=== PATIENT | female | born 1985 | race Caucasian/White ===

== ENCOUNTER 2017-02-19 19:48 | Emergency (ER) | payer MEDICAID ==
[~2017-02-19] VITALS: Ht 162.6 cm; Wt 123.1 kg
[2017-02-19] MEDS ORDERED: PREN-3 PO (20:00)
[2017-02-19 20:31] LABS: BLOOD UREA NITROGEN 8 mg/dL (7-18)
[2017-02-19 21:23] LABS: PATH.CAST-FLAG NOT PRESENT; SPERM-FLAG NOT PRESENT; SRC-FLAG NOT PRESENT; XTAL-FLAG NOT PRESENT; YLC-FLAG NOT PRESENT
[2017-02-19 22:07] VITALS: BP 133/82
== END 2017-02-19 22:09 | disposition home or self-care (01) ==
LOC: ED 22:03
DX: O20.0 Threatened abortion (principal); O99.331 Smoking (tobacco) complicating pregnancy, first trimester; Z3A.01 Less than 8 weeks gestation of pregnancy
CPT/HCPCS: 36415; 76805; 80048; 81001; 82040; 84702; 85025; 86901; 99285

== ENCOUNTER 2017-09-30 20:54 | Emergency (ER) | payer MEDICAID ==
[~2017-09-30] VITALS: Ht 165.1 cm; Wt 142.6 kg
[~2017-09-30 20:54] MED LIST: PREN-3 PO
[2017-09-30 20:57] VITALS: BP 163/103
[2017-09-30] MEDS ORDERED: DEXAMETHASONE 4 MG TABLET PO ONE (21:48)
[2017-09-30] MEDS ORDERED: DEXAMETHASONE 4 MG TABLET ONE (21:50)
== END 2017-09-30 22:05 | disposition home or self-care (01) ==
LOC: ED 22:00
DX: J02.8 Acute pharyngitis due to other specified organisms (principal); J00 Acute nasopharyngitis [common cold]; B97.89 Other viral agents as the cause of diseases classified elsewhere; F17.210 Nicotine dependence, cigarettes, uncomplicated; E66.9 Obesity, unspecified
CPT/HCPCS: 99283

== ENCOUNTER 2019-05-16 13:06 | Emergency (ER) | payer MEDICAID ==
[~2019-05-16] VITALS: Ht 162.6 cm; Wt 139.0 kg
[2019-05-16 13:08] VITALS: BP 179/72
--- NOTE | 2019-05-16 13:29 | NUR ---
THIS IS A 34 YO FEMALE COMING IN FOR FRONTAL TOOTH PAIN 12/28, RADIATING TO RIGHT JAW. THERE IS DISCHARGE COMING FROM LOOSE FRONT TOOTH, PAIN AND TOOTH ISSUES HAVE BEEN GOING ON FOR PAST THREE DAYS.
== END 2019-05-16 13:59 | disposition home or self-care (01) ==
LOC: ED 13:57
DX: K02.9 Dental caries, unspecified (principal); K08.89 Other specified disorders of teeth and supporting structures; F17.210 Nicotine dependence, cigarettes, uncomplicated; E66.9 Obesity, unspecified
CPT/HCPCS: 99283

== ENCOUNTER 2020-12-27 09:41 | Inpatient (IN) | payer MEDICAID ==
[~2020-12-27] VITALS: Ht 162.6 cm; Wt 138.0 kg
[2020-12-27] MEDS ORDERED: MAALOX/HYOSCYAMINE/LIDOCAINE 45 ML BTL ONE (10:07)
[2020-12-27] MEDS ORDERED: ONDANSETRON 2MG/ML, 2ML ONE ×3 (10:07→18:45)
[2020-12-27] MEDS ORDERED: FAMOTIDINE 20 MG/2 ML ONE (10:08)
--- NOTE | 2020-12-27 10:15 | NUR ---
ruq pain worse with eating x 2 weeks no abd surgical hx placed on nibp/pox piv placed from which labs were drawn, then medicated per emar Cxr at bedside at 09:59a ultrsound at bedside at 10:14a
[2020-12-27 10:16] LABS: BASOPHILS % (AUTO) 0 % (0-1); EOSINOPHILS % (AUTO) 1 % (1-7); LYMPHOCYTES % (AUTO) 9 % (22-44); MEAN CORPUSCULAR HEMOGLOBIN 31.5 pg (27.0-34.8); MEAN CORPUSCULAR HGB CONC 35.2 g/dL (32.4-35.8); MEAN PLATELET VOLUME 8.7 fL (7.4-10.4); MONOCYTES % (AUTO) 4 % (2-9); NEUTROPHILS % (AUTO) 86 % (42-75); PLATELET COUNT 260 x10^3/uL (130-400); RED BLOOD COUNT 5.48 x10^6/uL (3.82-5.3); RED CELL DISTRIBUTION WIDTH 14.1 % (9.6-15.2)
[2020-12-27 10:29] LABS: ALBUMIN 3.7 g/dL (3.4-5.0); ANION GAP 10 mmol/L (5-15); CALCIUM 8.6 mg/dL (8.5-10.1); CHLORIDE 106 mmol/L (98-107)
[2020-12-27] MEDS ORDERED: FAMOTIDINE 20 MG/2 ML IVPush ONE (10:30)
[2020-12-27] MEDS ORDERED: ONDANSETRON 2MG/ML, 2ML IVPush ONE (10:30)
[2020-12-27] MEDS ORDERED: MAALOX/HYOSCYAMINE/LIDOCAINE 45 ML BTL PO ONE (10:30)
--- NOTE | 2020-12-27 10:33 | NUR ---
with reassessment nausea improved to 07/30, pain remains at 8-erp made aware
[2020-12-27 10:35] LABS: ALANINE AMINOTRANSFERASE 95 U/L (12-78); ALKALINE PHOSPHATASE 104 U/L (45-117); BILIRUBIN,TOTAL 0.8 mg/dL (0.2-1.0); CREATININE 0.82 mg/dL (0.55-1.02); TOTAL PROTEIN 7.8 g/dL (6.4-8.2)
[2020-12-27] MEDS ORDERED: MORPHINE SULFATE 4 MG/ML, 1ML ONE ×2 (10:53→11:17)
[2020-12-27] MEDS ORDERED: MORPHINE SULFATE 4 MG/ML, 1ML IVPush ONE (11:00)
--- NOTE | 2020-12-27 11:59 | NUR ---
REMEDICATED FOR UNCONTROLLED RUQ PAIN/IVF STARTED WELL
[2020-12-27] MEDS ORDERED: SODIUM CHLORIDE 0.9% 1,000ML IVBOLUS ONE (12:00)
[2020-12-27] MEDS ORDERED: MORPHINE SULFATE 4 MG/ML, 1ML IVPush PRN ×2 (12:00→13:30)
[2020-12-27] MEDS ORDERED: CEFOTETAN PMX 2GM/50ML 50 ML IVPB ONE (13:00)
--- NOTE | 2020-12-27 13:20 | NUR ---
attempted to call report x1. no answer
[2020-12-27 14:00] VITALS: BP 129/65
[2020-12-27 14:52] VITALS: BP 129/65
[2020-12-27] MEDS ORDERED: INDOCYANINE GREEN 25 MG VIAL IV STA (15:19)
[2020-12-27 15:53] LABS: HCG UR SG 1.038 (1.003-1.030)
[2020-12-27] MEDS ORDERED: BUPIVACAINE/PF 0.5% ONE (16:03)
[2020-12-27] MEDS ORDERED: EPINEPHRINE 1 MG/ML, 1ML ONE (16:03)
[2020-12-27] MEDS ORDERED: MIDAZOLAM 1 MG/ML, 2ML ONE (17:51)
[2020-12-27] MEDS ORDERED: FENTANYL PF 250 MCG/5ML ONE (17:51)
[2020-12-27] MEDS ORDERED: DIPHENHYDRAMINE 50 MG/ML, 1ML IVPush PRN (18:00)
[2020-12-27] MEDS ORDERED: MEPERIDINE/PF 25MG/0.5ML IVPush PRN ×2 (18:00→19:30)
[2020-12-27] MEDS ORDERED: EPHEDRINE 50 MG/ML, 1ML IM PRN (18:00)
[2020-12-27] MEDS ORDERED: DIAZEPAM 5 MG/ML, 2ML IVPush PRN (18:00)
[2020-12-27] MEDS ORDERED: LABETALOL 5MG/ML, 20ML IV PRN (18:00)
[2020-12-27] MEDS ORDERED: OXYcodone 5 MG/5 ML ORAL.SOL UDC PO PRN ×2 (18:00→19:30)
[2020-12-27] MEDS ORDERED: ONDANSETRON 2MG/ML, 2ML IVPush PRN ×3 (18:00→20:30)
[2020-12-27] MEDS ORDERED: morphine SULFATE 10 MG/ML, 1ML IVPush PRN (18:00)
[2020-12-27] MEDS ORDERED: PROMETHAZINE 25 MG/ML, 1ML IVPush PRN ×2 (18:00→19:30)
[2020-12-27] MEDS ORDERED: EPHEDRINE 50 MG/ML, 1ML IVPush PRN (18:00)
[2020-12-27] MEDS ORDERED: SUCCINYLCHOLINE 20 MG/ML, 10ML ONE (18:45)
[2020-12-27] MEDS ORDERED: ROCURONIUM 10MG/ML,5ML ONE (18:45)
[2020-12-27] MEDS ORDERED: PROPOFOL 10 MG/ML, 20ML ONE (18:45)
[2020-12-27] MEDS ORDERED: PROPOFOL 50 ML ONE (18:45)
[2020-12-27] MEDS ORDERED: LORazepam 2 MG/ML, 1ML IVPush PRN (19:30)
[2020-12-27] MEDS ORDERED: PROMETHAZINE 25 MG SUPP PR PRN (19:30)
[2020-12-27] MEDS ORDERED: FENTANYL PF 100 MCG/2ML IV PRN (19:30)
[2020-12-27] MEDS ORDERED: METHOCARBAMOL 1,000 MG in DEXTROSE 5% 100 ML IV PRN (19:30)
[2020-12-27] MEDS ORDERED: HYDROmorphone 1 MG/ML, 1ML INJ IVPush PRN (19:30)
[2020-12-27] MEDS ORDERED: ACETAMINOPHEN 325 MG TABLET PO PRN ×2 (19:30→20:30)
[2020-12-27] MEDS ORDERED: FENTANYL PF 100 MCG/2ML ONE (19:52)
[2020-12-27] MEDS ORDERED: PROMETHAZINE 25 MG/ML, 1ML ONE (19:57)
[2020-12-27] MEDS: FENTANYL PF 100 MCG/2ML IV PRN ×2 (20:00→20:15)
[2020-12-27] MEDS ORDERED: OXYcodone 5 MG/5 ML ORAL.SOL UDC ONE (20:20)
[2020-12-27] MEDS ORDERED: POLYETHYLENE GLYCOL 17 GM PACKET PO PRN (20:30)
[2020-12-27] MEDS ORDERED: BISACODYL 10 MG SUPP PR PRN (20:30)
[2020-12-27] MEDS ORDERED: MEPERIDINE/PF 25MG/ML,1ML ONE (20:42)
[2020-12-27 21:23] VITALS: BP 147/92
[2020-12-27] MEDS: SODIUM CHLORIDE 0.9% 1,000 ML IV SCH (22:19)
[2020-12-27] MEDS: INSULIN LISPRO 100 UNITS/ML, PEN SQ-INSULIN SCH (23:38)
[2020-12-27] MEDS: morphine SULFATE 10 MG/ML, 1ML IVPush PRN (23:40)
[2020-12-28 00:22] VITALS: BP 147/92
[2020-12-28] MEDS: OXYcodone/APAP 5/325MG TABLET PO PRN ×5 (00:58→21:07)
[2020-12-28] MEDS: CEFOTETAN PMX 2GM/50ML 50 ML IV SCH ×2 (00:58→13:13)
[2020-12-28] MEDS: morphine SULFATE 10 MG/ML, 1ML IVPush PRN ×6 (02:52→22:33)
[2020-12-28 04:45] VITALS: BP 138/73
[2020-12-28 05:39] LABS: BASOPHILS % (AUTO) 0 % (0-1); EOSINOPHILS % (AUTO) 0 % (1-7); LYMPHOCYTES % (AUTO) 8 % (22-44); MEAN CORPUSCULAR HEMOGLOBIN 31.2 pg (27.0-34.8); MEAN CORPUSCULAR HGB CONC 34.3 g/dL (32.4-35.8); MEAN PLATELET VOLUME 8.7 fL (7.4-10.4); MONOCYTES % (AUTO) 4 % (2-9); NEUTROPHILS % (AUTO) 88 % (42-75); PLATELET COUNT 230 x10^3/uL (130-400); RED BLOOD COUNT 4.36 x10^6/uL (3.82-5.3); RED CELL DISTRIBUTION WIDTH 13.9 % (9.6-15.2)
[2020-12-28 05:48] LABS: ANION GAP 10 mmol/L (5-15); CALCIUM 7.5 mg/dL (8.5-10.1); CHLORIDE 106 mmol/L (98-107)
[2020-12-28 05:49] LABS: CREATININE 0.95 mg/dL (0.55-1.02)
[2020-12-28 06:45] VITALS: BP 143/86
[2020-12-28] MEDS: SODIUM CHLORIDE 0.9% 1,000 ML IV SCH ×2 (07:32→16:34)
[2020-12-28] MEDS: INSULIN LISPRO 100 UNITS/ML, PEN SQ-INSULIN SCH ×4 (07:32→21:13)
[2020-12-28] MEDS: metFORMIN 500 MG TABLET PO SCH ×2 (07:32→16:34)
[2020-12-28] MEDS: SENNA/DOCUSATE TABLET PO SCH (08:13)
[2020-12-28 08:42] LABS: ALANINE AMINOTRANSFERASE 243 U/L (12-78); ALBUMIN 2.9 g/dL (3.4-5.0)
[2020-12-28 08:44] LABS: ALKALINE PHOSPHATASE 108 U/L (45-117); BILIRUBIN,TOTAL 0.5 mg/dL (0.2-1.0); TOTAL PROTEIN 6.4 g/dL (6.4-8.2)
[2020-12-28 14:15] VITALS: BP 149/85
[2020-12-28 19:38] VITALS: BP 117/70
[2020-12-29 00:29] VITALS: BP 128/77
[2020-12-29] MEDS: CEFOTETAN PMX 2GM/50ML 50 ML IV SCH ×2 (01:06→13:19)
[2020-12-29] MEDS: OXYcodone/APAP 5/325MG TABLET PO PRN ×4 (01:07→15:25)
[2020-12-29] MEDS: morphine SULFATE 10 MG/ML, 1ML IVPush PRN (04:33)
[2020-12-29 05:41] LABS: BASOPHILS % (AUTO) 1 % (0-1); EOSINOPHILS % (AUTO) 1 % (1-7); LYMPHOCYTES % (AUTO) 21 % (22-44); MEAN CORPUSCULAR HEMOGLOBIN 31.2 pg (27.0-34.8); MEAN CORPUSCULAR HGB CONC 34.1 g/dL (32.4-35.8); MEAN PLATELET VOLUME 8.8 fL (7.4-10.4); MONOCYTES % (AUTO) 8 % (2-9); NEUTROPHILS % (AUTO) 71 % (42-75); PLATELET COUNT 212 x10^3/uL (130-400); RED BLOOD COUNT 4.16 x10^6/uL (3.82-5.3); RED CELL DISTRIBUTION WIDTH 13.9 % (9.6-15.2)
[2020-12-29 05:48] LABS: ALBUMIN 2.6 g/dL (3.4-5.0); ANION GAP 6 mmol/L (5-15); CALCIUM 7.6 mg/dL (8.5-10.1); CHLORIDE 106 mmol/L (98-107); CREATININE 0.75 mg/dL (0.55-1.02)
[2020-12-29 05:53] LABS: ALANINE AMINOTRANSFERASE 177 U/L (12-78); ALKALINE PHOSPHATASE 100 U/L (45-117); BILIRUBIN,TOTAL 0.5 mg/dL (0.2-1.0)
[2020-12-29 06:20] VITALS: BP 147/83
[2020-12-29] MEDS: INSULIN LISPRO 100 UNITS/ML, PEN SQ-INSULIN SCH ×3 (07:21→15:53)
[2020-12-29] MEDS: SENNA/DOCUSATE TABLET PO SCH (08:03)
[2020-12-29] MEDS: metFORMIN 500 MG TABLET PO SCH ×2 (08:03→16:29)
[2020-12-29 13:40] VITALS: BP 143/74
[2020-12-29] MEDS ORDERED: METF500T PO (15:53)
== END 2020-12-29 17:26 | disposition home or self-care (01) | DRG 418 ==
LOC: ED 12:05 → EDIP 13:04 → 4NW 13:44 → 4NE 12-29 12:08
PROVIDERS: ADMIT Internal Medicine; ATTEND Internal Medicine
PROC: 0FT44ZZ Resection of Gallbladder, Percutaneous Endoscopic Approach (ICD-10-PCS; principal; 2020-12-27 17:00)
DX: K80.00 Calculus of gallbladder with acute cholecystitis without obstruction (principal); Z68.43 Body mass index [BMI] 50.0-59.9, adult; D75.1 Secondary polycythemia; E66.01 Morbid (severe) obesity due to excess calories; F12.90 Cannabis use, unspecified, uncomplicated; F17.210 Nicotine dependence, cigarettes, uncomplicated; K76.0 Fatty (change of) liver, not elsewhere classified; Z88.2 Allergy status to sulfonamides; Z20.822 Contact with and (suspected) exposure to COVID-19; E11.65 Type 2 diabetes mellitus with hyperglycemia
CPT/HCPCS: 36415; 96374; 96375; 99285; S0020; 71045; 76700; 80053; 81025; 82962; 83036; 83690; 84703; 85025; 87635; 88304; G0378; J0171; J2175; J2250; J2405; J2550; J2704; J3010; C1760; J0330; J1815; J2270; J2800; J7030